=== PATIENT | male | born 1995 | race African-American/Black ===

== ENCOUNTER 2019-03-26 19:48 | Emergency (ER) | payer SELFPAY ==
[~2019-03-26] VITALS: Ht 167.6 cm; Wt 73.0 kg
[2019-03-27] MEDS ORDERED: SODIUM CHLORIDE 0.9% 1,000 ML IV ONE (02:26)
[2019-03-27] MEDS ORDERED: KETOROLAC 30MG/ML VIAL IV STA (02:26)
[2019-03-27 03:07] LABS: CHLORIDE 105 mEq/L (98-107)
[2019-03-27 03:11] LABS: ETHANOL BLOOD < 10 mg/dL
[2019-03-27 03:16] LABS: BASOPHILS % 1.3 % (0.0-2.0); CREATINE KINASE 267 IU/L (39-308); EOSINOPHILS % 12.7 % (0.0-5.0); HEMATOCRIT. 42.2 % (42.0-52.0); HEMOGLOBIN. 13.8 g/dL (14.0-18.0); MEAN CORPUSCULAR HEMOGLOBIN 27.4 pg (28.0-32.0); MEAN CORPUSCULAR VOLUME 83.6 fL (80.0-94.0); MEAN PLATELET VOLUME 7.7 fl (7.4-10.4); PLATELET 263 x1000/uL (130-400); RED BLOOD CELL COUNT 5.05 mill/uL (4.7-6.1)
[2019-03-27 03:20] LABS: CLARITY URINE CLEAR (CLEAR); COLOR URINE YELLOW (YELLOW); KETONES URINE NEGATIVE (NEGATIVE); LEUKOCYTE ESTERASE URINE NEGATIVE (NEGATIVE); NITRITE URINE NEGATIVE (NEGATIVE); OCCULT BLOOD URINE NEGATIVE (NEGATIVE); PH URINE 7.5 (4.5-8.0); PROTEIN URINE NEGATIVE (NEGATIVE); SPECIFIC GRAVITY URINE 1.017 (1.005-1.030); UROBILINOGEN URINE 0.2 E.U./dL (0.2-1.0)
[2019-03-27 03:25] LABS: *BARBITURATES SCREEN URINE NEGATIVE (NEGATIVE)
[2019-03-27 03:26] LABS: *AMPHETAMINES SCREEN URINE NEGATIVE (NEGATIVE); *BENZODIAZEPINES SCREEN URINE NEGATIVE (NEGATIVE); *COCAINE SCREEN URINE NEGATIVE (NEGATIVE)
[2019-03-27 03:27] LABS: METHADONE URINE SCREEN NEGATIVE (NEGATIVE); OPIATES URINE SCREEN NEGATIVE (NEGATIVE); PHENCYCLIDINE URINE SCREEN NEGATIVE (NEGATIVE)
[2019-03-27 03:28] LABS: CANNABINOID URINE SCREEN NEGATIVE (NEGATIVE)
[2019-03-27 06:30] VITALS: BP 97/56
== END 2019-03-27 07:13 | disposition home or self-care (01) ==
LOC: ER 19:48
DX: E86.0 Dehydration (principal); Z59.0 Homelessness; M79.652 Pain in left thigh; M79.651 Pain in right thigh; Z86.59 Personal history of other mental and behavioral disorders
CPT/HCPCS: 36415; 80053; 80305; 80320; 81003; 82550; 83880; 85025; 96361; 96374; 99283; J1885; J7030; Z7610; G0480